=== PATIENT | female | born 1960 | race Caucasian/White ===

== ENCOUNTER 2018-11-21 10:29 | Emergency (ER) | payer BC ==
[~2018-11-21] VITALS: Ht 172.7 cm; Wt 74.8 kg
== END 2018-11-21 16:24 | disposition home or self-care (01) ==
LOC: ER 10:29
DX: S91.322A Laceration with foreign body, left foot, initial encounter (principal); W45.8XXA Other foreign body or object entering through skin, initial encounter; Y93.89 Activity, other specified; Y92.488 Other paved roadways as the place of occurrence of the external cause; Y99.8 Other external cause status